=== PATIENT | male | born 1960 | race African-American/Black ===

== ENCOUNTER 2018-06-12 14:58 | Emergency (ER) | payer MEDICARE, MEDICAID ==
[~2018-06-12] VITALS: Ht 185.4 cm; Wt 86.2 kg
[2018-06-12 16:20] LABS: INR 1.11 (0.9-1.15); Partial Thromboplastin Time 33.8 sec (23.78-33.04); Prothrombin Time 11.8 sec (9.27-12.13)
[2018-06-12 16:24] LABS: Hematocrit 39.1 % (41.0-53.0); Mean Corpuscular Hemoglobin 30.1 pg (28.0-32.0); Mean Corpuscular Hgb Conc. 33.2 g/dL (32.0-36.0); Mean Corpuscular Volume 90.7 fL (80.0-100.0); Platelet Count (auto) 218 10^3/uL (140-450); Red Blood Cells 4.32 10^6/uL (4.5-5.90); Red Cell Distribution Width 18.2 % (11.8-14.3)
[2018-06-12 16:28] LABS: Albumin 2.6 g/dL (3.4-5.0); BUN/Creatinine Ratio 10.3; Band Neutrophils % (manual) 0; Basophils % (manual) 0 (0.0-2.0); Blast Cells 0; Calcium 8.5 mg/dL (8.5-10.1); Eosinophils % (manual) 0 (0-7); Metamyelocytes % 0; Myelocytes % 0; Promyelocytes % 0; Reactive Lymphocytes 0
[2018-06-12 16:31] LABS: Bilirubin, Total 1.1 mg/dL (0.2-1.0)
[2018-06-12 16:35] LABS: Potassium 2.8 mmol/L (3.5-5.1)
[2018-06-12] MEDS ORDERED: IOHEXOL 300 MG/ML 100ML BOTTLE IJ ONE (16:41)
[2018-06-12 17:44] LABS: Lymphocytes % (manual) 32 (10.0-50.0); Monocytes % (manual) 21 (0-12)
[2018-06-12] MEDS ORDERED: POTASSIUM CHL 20 Meq TABLET PO ONE (18:00)
[2018-06-12] MEDS ORDERED: cefTRIAXone 1GM/50ML D5W 50 ML IV ONE (20:15)
[2018-06-12] MEDS ORDERED: IBUPROFEN 800 MG TAB PO ONE (20:15)
[2018-06-12 22:13] LABS: Urine Bacteria NONE SEEN /hpf (None Seen); Urine Blood Negative /uL (Negative); Urine WBC 1 /hpf (0 - 3)
[2018-06-12 22:19] LABS: Urine Specific Gravity > 1.050 (1.001-1.035)
[2018-06-13 00:54] VITALS: BP 128/89
== END 2018-06-12 22:23 | disposition short-term general hospital (02) ==
LOC: ER 14:58
DX: I82.C12 Acute embolism and thrombosis of left internal jugular vein (principal); E87.6 Hypokalemia; Z85.850 Personal history of malignant neoplasm of thyroid
CPT/HCPCS: 36415; 70491; 71045; 80053; 80320; 81001; 83605; 85007; 85027; 85610; 85730; 87040; 94761; 96365; 99285; J0696; Q9967